=== PATIENT | female | born 1980 | race Caucasian/White ===

== ENCOUNTER → 2016-12-25 | Outpatient (CLI) | payer BC ==
--- NOTE | 2016-12-26 07:27 | XR ---
EXAMINATION TYPE: XR lumbosacral spine min 4V DATE OF EXAM: 12/25/2016 12:00 PM COMPARISON: NONE HISTORY: 36-year-old female left radiculopathy and low back pain TECHNIQUE: 5 views FINDINGS: 5 lumbar type vertebral bodies. Vertebral body heights are preserved and alignment is maintained. The re may be mild facet degenerative change in the lower lumbar spine. IMPRESSION: Mild degenerative facet changes in the lower lumbar spine. No vertebral compression collapse or malal ignment.
== END ==
LOC: RADXRYALE 11:45
PROVIDERS: ATTEND Internal Medicine
DX: M47.816 Spondylosis without myelopathy or radiculopathy, lumbar region (principal)
CPT/HCPCS: 72110

== ENCOUNTER → 2017-01-17 | Outpatient (CLI) | payer BC ==
[2017-01-17 21:37] LABS: Hemoglobin A1C 5.7 % (4.2-6.1)
== END | disposition home or self-care (01) ==
LOC: LABWHC1 12:11
PROVIDERS: ATTEND Internal Medicine
DX: E78.5 Hyperlipidemia, unspecified (principal)
CPT/HCPCS: 36415; 82947; 83036

== ENCOUNTER → 2017-01-18 | Outpatient (CLI) | payer BC ==
--- NOTE | 2017-01-18 16:52 | US ---
EXAMINATION TYPE: US thyroid st tissue head/neck DATE OF EXAM: 01/18/2017 4:03 PM COMPARISON: CLINICAL HISTORY: E06.3 Autoimmune thyroiditis. Left neck pain. Hx of left parotid mass removal x 20 09 per patient. GLAND SIZE: Right Lobe: 3.8 x 1.1 x 1.6 cm Overall Parenchyma: homogenous Left Lobe: 4.0 x 1.4 x 1.4 cm Overall Parenchyma: homogeneous Isthmus Thickness: 0.2 cm NODULES RIGHT: # of nodules measured on right: 0 LEFT: # of nodules measured on left: 0 ISTHMUS: # of nodules measured in the isthmus: 0 Bilateral neck scanned, no evidence of lymphadenopathy. Area of patient pain and mass removal scanned, no abnormality identified IMPRESSION: Unremarkable thyroid ultrasound.
== END | disposition home or self-care (01) ==
LOC: RADUSWWP 15:44
PROVIDERS: ATTEND Internal Medicine
DX: E06.3 Autoimmune thyroiditis (principal)
CPT/HCPCS: 76536

== ENCOUNTER → 2017-06-21 | Outpatient (CLI) | payer BC ==
--- NOTE | 2017-06-21 09:45 | US ---
EXAMINATION TYPE: US pelvis complete transvag DATE OF EXAM: 06/21/2017 COMPARISON: NONE CLINICAL HISTORY: N92.1 Menorrhagia with irregular cycle. Difficult/limited exam TECHNIQUE: Transvaginal (TV) and Transabdominal (TA) Date of LMP: 05/23/2017 EXAM MEASUREMENTS: Uterus: 7.7 x 2.8 x 4.2 cm Endometrial Stripe: 1.4 cm Right Ovary: 2.0 x 1.6 x 2.2 cm Left Ovary: Not visualized on this exam 1. Uterus: Anteverted. Heterogenous 2. Endometrium: Upper limits of normal thickness 3. Right Ovary: wnl as visualized 4. Left Ovary: Not visualized on this exam 5. Bilateral Adnexa: wnl 6. Posterior cul-de-sac: wnl IMPRESSION: 1. Nonspecific heterogeneity of the uterine myometrium.
== END | disposition home or self-care (01) ==
LOC: RADUSWWP 08:45
PROVIDERS: ATTEND Obstetrics & Gynecology
DX: N92.6 Irregular menstruation, unspecified (principal)
CPT/HCPCS: 76830; 76856